=== PATIENT | female | born 1975 | race Caucasian/White ===

== ENCOUNTER 2018-12-29 05:54 | Day surgery (SDC) | payer OTHER ==
[2018-12-29] VITALS (12 sets, daily range): BP systolic 116–137; BP diastolic 52–69; PULSE 60–84; RESP 17–20; Ht 160 cm; Wt 75.0 kg
[~2018-12-29] VITALS: Ht 160 cm; Wt 75.0 kg
--- NOTE | 2018-12-29 07:12 | PREAC ---
Date/Time of Note Date/Time of Note DATE: 12/29/18 TIME: 07:11 Anesthesia Eval and Record Evaluation Time Pre-Procedure Interview DATE: 12/29/18 TIME: 07:11 Age 43 Sex female NPO: 8 hrs Preoperative diagnosis Menorrhagia Planned procedure Endometrial ablation Past Medical History Past Medical History: Includes Cardio: Dyslipidemia GI: Obesity Surgery & Anesthesia Issues No known issue Meds Anticoagulation: No Beta Hansa within 24 hr: No Reason Beta Hansa not given: Pt. not on B-Hansa No Active Prescriptions or Reported Meds Current Medications Lactated Ringer's 1,000 ml @ 125 mls/hr Q8H IV ; Start 12/29/18 at 07:30 Meds reviewed: Yes Allergies Coded Allergies: No Known Allergy (Unverified , 12/29/18) Allergies Reviewed: Yes Labs/Studies Labs Reviewed: Reviewed by anesthesiologist test: Negative Pre-procedure Exam Airway: Adequate mouth opening Mallampati: Mallampati II Teeth: Normal Lung: Normal Heart: Normal ASA Physical Status ASA physical status: 2 Emergency: None Planned Anesthetic General/MAC: ETT, LMA Planned Pain Management Parenteral pain med Pre-operative Attestations Prior to commencing anesthesia and surgery, the patient was re-evaluated, there was verification of: *The patient's identity *The results of appropriate recent lab work and preoperative vital signs *The above evaluation not changing prior to induction *Anesthetic plan, risk benefits, alternative and complications discussed with patient/family; questions answered; patient/family understands, accepts and wish es to proceed. TRENA TIAN MD Dec 29, 2018 07:12
[2018-12-29] MEDS ORDERED: CEFAZOLIN 1 GM INJ ONE (07:30)
[2018-12-29] MEDS ORDERED: ONDANSETRON 4 MG INJ ONE (07:30)
[2018-12-29] MEDS ORDERED: LIDOCAINE 2% (SDV) 5 ML INJ ONE (07:30)
[2018-12-29] MEDS ORDERED: SEVOFLURANE 15 MIN ONE (07:30)
[2018-12-29] MEDS ORDERED: METOCLOPRAMIDE 10 MG INJ ONE (07:30)
[2018-12-29] MEDS ORDERED: LACTATED RINGER'S 1,000 ML IV SCH (07:30)
[2018-12-29] MEDS ORDERED: PROPOFOL 20 ML ONE (07:30)
[2018-12-29] MEDS ORDERED: MEPERIDINE 100 MG INJ ONE (07:30)
[2018-12-29] MEDS ORDERED: OXYCODONE/ACETAMINOPHEN (5/325) TAB PO PRN ×2 (08:30)
[2018-12-29] MEDS ORDERED: FENTAnyl 50 MCG/ML VIAL IV PRN ×3 (08:30)
[2018-12-29] MEDS ORDERED: ONDANSETRON 4 MG INJ IV PRN (08:30)
[2018-12-29] MEDS ORDERED: MIDAZOLAM 1 MG/ML 2 ML INJ IV PRN (08:30)
[2018-12-29] MEDS ORDERED: DIPHENHYDRAMINE 50 MG INJ IV PRN (08:30)
[2018-12-29] MEDS ORDERED: METOCLOPRAMIDE 10 MG INJ IV PRN (08:30)
[2018-12-29] MEDS ORDERED: MEPERIDINE 25 MG INJ IV PRN (08:30)
[2018-12-29] MEDS ORDERED: HYDROmorphONE 1 MG/5 ML IV SYRINGE IV PRN ×3 (08:30)
--- NOTE | 2018-12-29 08:43 | OPR ---
Date/Time of Note Date/Time of Note DATE: 12/29/18 TIME: 08:39 Operative Report Procedure Date: Dec 29, 2018 Preoperative Diagnosis Menometrorrhagia Postoperative Diagnosis Same Operation/Procedure Performed Hydrothermal Endometrial Ablation Surgeon Qamar De La Torre MD Inserter Operator None Anesthesia Type: general Estimated Blood Loss: 0 - 10 ml's Transfusion none Specimen none Grafts/Implants none Tubes/Drains none Complications none Pt Condition Post Procedure: stable Disposition: PACU Procedure Description CONSENT: Please see preoperative notes from my office for the consent process. DESCRIPTION OF PROCEDURE: She was taken to the operating room and general anesthesia was induced. She was prepped and draped in the usual sterile fashion. Surgical time out was done. The patient and procedure were identified. The anterior lip of the cervix was grasped with a single-tooth tenaculum. Cervix was hydro-dilated. The hysteroscope was inserted and the endometrial cavity was visualized clearly. At this time extra tenaculum applied to seal the cervix. seal check done and passed. Ablation process initiated. fluid temp increased to 80c and 10 minute period started. No fluid loss noted during the ablation time. Then 90 seconds of Cooling period done. all in struments removed. The tenaculum was removed and there was no bleeding from the tenaculum site. The patient tolerated the procedure well. QAMAR DE LA TORRE MD Dec 29, 2018 08:43
--- NOTE | 2018-12-29 09:42 | PAC ---
Date/Time of Note Date/Time of Note DATE: 12/29/18 TIME: 09:41 Post-Anesthesia Notes Post-Anesthesia Note Last documented vital signs Vital Signs Date Temp Pulse Resp B/P (MAP) Pulse Ox O2 O2 Flow FiO2 Time Delivery Rate 12/29/18 60 19 119/63 95 Room Air 09:26 (81) 12/29/18 98.5 08:51 Activity: WNL Respiratory function: WNL Cardiovascular function: WNL Mental status: Baseline Pain reasonably controlled: Yes Hydration appropriate: Yes Nausea/Vomiting absent: Yes Comments BT: 98.5 TRENA TIAN MD Dec 29, 2018 09:42
== END 2018-12-29 12:00 | disposition home or self-care (01) ==
LOC: SDS 05:54
PROVIDERS: ATTEND Specialist
DX: N92.1 Excessive and frequent menstruation with irregular cycle (principal)
CPT/HCPCS: 58353; J0690; J1170; J2175; J2405; J2765; Z7512; Z7610